=== PATIENT | male | born 1950 | race Caucasian/White ===

== ENCOUNTER 2016-07-19 14:13 | Emergency (ER) | payer MEDICARE, OTHER | END 2016-07-19 20:14 | disposition home or self-care (01) | LOC: ER 14:13 | DX: T82.898A Other specified complication of vascular prosthetic devices, implants and grafts, initial encounter (principal); E03.9 Hypothyroidism, unspecified; E78.5 Hyperlipidemia, unspecified; I12.0 Hypertensive chronic kidney disease with stage 5 chronic kidney disease or end stage renal disease; N18.6 End stage renal disease; Z99.2 Dependence on renal dialysis; Z79.899 Other long term (current) drug therapy | CPT/HCPCS: 36415; 96365 ==